=== PATIENT | female | born 1950 | race Caucasian/White ===

== ENCOUNTER 2016-08-06 09:00 | Inpatient (IN) | payer OTHER ==
[2016-08-15] MEDS ORDERED: MECLIZINE 25 MG TABLET PO ONE (06:00)
[2016-08-15] MEDS ORDERED: METOCLOPRAMIDE 10 MG TABLET PO ONE (06:00)
[2016-08-15] MEDS ORDERED: CEFAZOLIN 2 Gram 2 GM/50 ML BAG IVPB ONE ×2 (06:00→15:27)
[2016-08-15] MEDS ORDERED: ACETAMINOPHEN 1,000 MG/100 ML BTL IV ONE (06:00)
[2016-08-15] MEDS ORDERED: FAMOTIDINE 20MG TABLET PO ONE (06:00)
[2016-08-15] MEDS ORDERED: MAGNESIUM HYDROXIDE 30 ML UDC PO PRN (12:30)
[2016-08-15] MEDS ORDERED: OXYCODONE HCL 5 MG TABLET PO PRN ×2 (12:30)
[2016-08-15] MEDS ORDERED: METOCLOPRAMIDE HCL 10 MG/2 ML VIAL IVP PRN (12:30)
[2016-08-15] MEDS ORDERED: HYDROMORPHONE HCL 1 MG/ML CPJ IVP PRN (12:30)
[2016-08-15] MEDS ORDERED: TRAMADOL HCL 50 MG TABLET PO PRN (12:30)
[2016-08-15] MEDS ORDERED: ZOLPIDEM TARTRATE 5 MG TABLET PO PRN (12:30)
[2016-08-15] MEDS ORDERED: ONDANSETRON HCL IV 4 MG/2 ML VIAL IVP PRN (12:30)
[2016-08-15] MEDS ORDERED: AL HYDROX/MAG HYDROX 30ML UD PO PRN (12:30)
[2016-08-15] MEDS ORDERED: SENNOSIDES/DOCUSATE SODIUM UD CAPSULE PO PRN (12:30)
[2016-08-15] MEDS ORDERED: DIPHENHYDRAMINE HCL 25 MG CAPSULE PO PRN (12:30)
[2016-08-15] MEDS ORDERED: TRANEXAMIC ACID 1,000 MG in 0.9 % SODIUM CHLORIDE 100ML 100 ML IVPB ONE ×2 (13:00→15:00)
[2016-08-15] MEDS ORDERED: MIDAZOLAM HCL 2MG/2ML VIAL IV ONE (14:00)
[2016-08-15] MEDS ORDERED: PROPOFOL 10 MG/ML VIAL IV ONE (14:00)
[2016-08-15] MEDS ORDERED: FENTANYL PF 100MCG/2ML VIAL IV ONE (14:00)
[2016-08-15] MEDS ORDERED: DIPHENHYDRAMINE HCL IV 50 MG/ML VIAL IVP ONE (14:00)
[2016-08-15] MEDS ORDERED: LIDOCAINE 2% MDV (20MG/ML) 20ML VIAL IV ONE (14:00)
[2016-08-15] MEDS ORDERED: TRANEXAMIC ACID 1,000 MG/10 ML ML IV ONE (15:27)
[2016-08-15] MEDS ORDERED: BUPIVACAINE LIPOSOME 266MG/20ML VIAL IV ONE (15:27)
[2016-08-15] MEDS ORDERED: BUPIVACAINE 0.25% W/EPI MPF 30ML VIAL IVP ONE (15:27)
[2016-08-15] MEDS: RINGERS SOLUTION,LACTATED 1,000 ML IV SCH (15:48)
[2016-08-15] MEDS: ACETAMINOPHEN 1,000 MG/100 ML BTL IV SCH ×2 (16:12→21:51)
--- NOTE | 2016-08-15 16:28 | Rehab Evaluation ---
Patient Information - Patient Information Diagnosis: Left Knee OA Ordered Treatment: PT Evaluate and Treat Status: Initial Evaluation Surgery: Yes (L Knee TKA) Date of Surgery: 08/15/16 History: Detail (Pt. reports excellent PMH except for knee arthritis. Pt. slowly progressive worsening of sx.) Past Med/[place] Hx Detail: Detail (No related orthopedic surgeries.) Past Medical/Surgical Hx: PAST MEDICAL/SURGICAL HISTORY Past Surgical History tonsillectomy; tubal ligation; kidney stone removal PMH - Respiratory Hx Respiratory Disorders Yes Hx of SOB Yes: only with allergies-not now PMH - Cardiovascular Hx Cardiovascular Disorders No Exercise Tolerance Fair Comment: due to knee pain PMH - Neuro Hx Neurological Disorders No PMH - GI Hx Gastrointestinal Disorders No PMH - Hx Genitourinary Disorders Yes Hx Kidney Stones Yes: 6yrs ago Hx Urinary Tract Infection Yes: last one 6 yrs ago Comment: tubal ligation PMH - Endocrine Hx Endocrine Disorders No PMH - Musculoskeletal Hx Musculoskeletal Disorders Yes Hx Arthritis Yes: knees Hx Back Injury Yes: fx 1984,mid back PMH - Psych Hx Psychiatric Problems No PMH - Hematology/Oncology Hx Hematology/Oncology No Disorders Premorbid Status: Detail (Pt. reports slow and progressive degenerative changes at the knees bilaterally.) Social History: Detail (Pt. lives in a bi-level home with 1 step leading into the home and a flight of stairs leading to the basement where her bedroom is located. Pt. has a handrail on the left side when descending. Pt. has a grab bar and shower chair located in the bathroom in the basement. 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 Pt. has [employer] to provide support throughout the day. Pt. has a standard walker.) Precautions: [place], Fall - Time With Patient Total Time Spent With Patient (Min): 60 Treatment Procedures: Detail (Physical Therapy Eval Completed. Pt. ambulated to and from bathroom with front wheeled walker with CCG. Void attempt was successful. Pt. performed seated SLR, quadriceps isometric, and hamstring isometric for 5 attempts. Pt. stood and performed weight shifts at bedside for 2 minutes. Pt. was left supine with call light available, B IPC, CPM attached, nursing was notified of pt.'s status. Pt. was positioned supine and then transferred back to standing following bed inspection and findings of soiled linen. Linen was changed and pt.'s undergarments were changed following trip to bathroom and successful void attempt. Pt. was then placed back to supine positioning, when she reported that she could "now feel her backside".) Subjective Information - Subjective Information Per Patient (Pt. reported pain level of 0-1/10 throughout treatment.) Objective Data - Pain Pain Present: No Pain Scale Used: Numeric (1 - 10) - Mental Status Patient Orientation: Oriented x3 - Visual Perception Appears within normal limits for therapeutic activities - ROM Other (CPM set at 0 degrees extension and 60 degrees flexion. RLE within functional ROM values all planes of movement. BUE WFL all planes of movement.) - Strength/Tone Other (Break testing not tested for left knee flexion and extension. Left and right hip extension and flexion within functional strength limits needed for supine transfers and body positioning in bed. BUE within functional limits for bed transfers.) - Coordination Appears within normal limits for therapeutic activities - Bed Mobility Needs Assist (Pt. require minimum assistance with positioning of the LLE with supine to seated transfer, otherwise I with bed mobility.) - Transfers Needs Assist (Pt. required minimum assistance with positioning of the LLE with sit to stand transfer, otherwise I with transfer.) - Balance Balance Sitting: Good Balance Standing: Good (Pt. stood upright with CGA in bathroom for more than 3 minutes without deviation from midline.) - Sensation Intact (Pt. had feeling at the LLE regarding toes and bottom of foot.) - Gait Detail (Pt. was corrected to advance the operative LE with walker.) - ADL's/IADL's Detail (Pt. required moderate assistance with donning and doffing her undergarments prior to void attempt.) - Special Tests No Therapy Assessment - Therapy Assessment Detail (Pt. exhibits good understanding of body positioning and safety awareness with bed mobility and transfers. She exhibits functional strength of the bilateral UEs and is expected to pass all PT goals tomorrow.) Patient Education - Patient Education Teaching Topic: Discharge Instructions, Precautions Response: Verbalize Understanding Teaching Method: Discussion Teaching Recipient: Patient Barriers To Learning: None Problem List - Problem List Physical Therapy Problem List: Detail (1) LE weakness 2) LE ROM restriction 3) Assistance required with bed mobility and transfers 4) Verbal cues required for positioning of the operative LE.) Goals - Goals Physical Therapy Goals: 1) Pt. will ambulate household distances independently with AD without signs of gait deviation for safe ambulation. 2) Pt. will verbalize understanding of precautions. 3) Pt. will be independent with the home program. 4) Pt. will ascend and descend 7 steps independently with AD and exhibit proper positioning of LEs and AD. Prognosis - Prognosis Good (Pt. is expected to complete inpatient PT goals within 1-2 days and be appropriate for D/C to home environment following inpatient stay.) Plan - Plan Physical Therapy Plan: Pt. is to be seen 1-2x per day for inpatient PT until goals met for D/C to home environment.
[2016-08-15] MEDS: CEFAZOLIN 2 Gram 2 GM/50 ML BAG IVPB SCH (16:53)
[2016-08-15] MEDS: TRAMADOL HCL 50 MG TABLET PO PRN ×2 (16:53→23:57)
[2016-08-15] MEDS: FONDAPARINUX 2.5 MG/0.5 ML SYR SQ SCH (21:51)
[2016-08-16] MEDS: CEFAZOLIN 2 Gram 2 GM/50 ML BAG IVPB SCH ×2 (01:15→08:35)
[2016-08-16] MEDS: ACETAMINOPHEN 1,000 MG/100 ML BTL IV SCH (03:19)
[2016-08-16] MEDS: RINGERS SOLUTION,LACTATED 1,000 ML IV SCH (06:33)
[2016-08-16 06:45] LABS: HEMATOCRIT 35.5 % (35.0-47.0); MEAN CELL VOLUME 85.1 fl (81-97); MEAN PLATELET VOLUME 10.4 fl (7.4-10.4); PLATELET COUNT 201 K/uL (130-400); RED BLOOD COUNT 4.17 M/uL (3.80-5.40); RED CELL DISTRIBUTION WIDTH 14.7 % (11.5-14.5)
[2016-08-16 06:50] LABS: MEAN CORPUSCULAR HEMOGLOBIN 26.3 pg (27-33)
[2016-08-16] MEDS: TRAMADOL HCL 50 MG TABLET PO PRN ×2 (08:33→15:49)
--- NOTE | 2016-08-16 10:24 | Physical Therapy Tx Note ---
Physical Therapy Tx Note - Treatment Note Tolerated: Good Total Time Spent With Patient: 30 Physical Therapy Tx Note: Detail (Patient states 4/10 pain in left knee. Patient transferred min assist x1 to support left LE. Patient transferred sit to and from stand CGA x1. Patient ambulated 45 feet with wheeled walker CGA x1. Patient performed the following exercises x10 reps each seated on edge of bed: ankle pumps, quad sets, glut squeezes, heel slides, and seated SLR with assist. Patient transferred sit to supine min assist x1 to support left LE. Patient tolerated treatment well. Patient reports knee painful after treatment. Patient was left supine in bed with cryo, CPM, and pneumatic compression.) Physical Therapy Problem List: Detail (1) LE weakness 2) LE ROM restriction 3) Assistance required with bed mobility and transfers 4) Verbal cues required for positioning of the operative LE.) Physical Therapy Goals: 1) Pt. will ambulate household distances independently with AD without signs of gait deviation for safe ambulation. 2) Pt. will verbalize understanding of precautions. 3) Pt. will be independent with the home program. 4) Pt. will ascend and descend 7 steps independently with AD and exhibit proper positioning of LEs and AD. Prognosis: Good Physical Therapy Plan: Pt. is to be seen 1-2x per day for inpatient PT until goals met for D/C to home environment.
[2016-08-16] MEDS ORDERED: OXYCODONE/APAP 7.5MG/325MG TABLET PO PRN ×2 (12:30)
[2016-08-16] MEDS ORDERED: HYDROCODONE/APAP 7.5/325MG TABLET PO PRN ×2 (12:30)
[2016-08-16] MEDS ORDERED: ACETAMINOPHEN 325 MG TAB PO PRN (12:30)
--- NOTE | 2016-08-16 13:42 | Rehab Evaluation ---
Patient Information - Patient Information Diagnosis: Left Knee OA Ordered Treatment: OT Evaluate and Treat Status: Initial Evaluation Surgery: Yes (L Knee TKA) Date of Surgery: 08/15/16 History: Detail (Pt. reports excellent PMH except for knee arthritis. Pt. slowly progressive worsening of sx.) Past Med/[place] Hx Detail: Detail (No related orthopedic surgeries.) Past Medical/Surgical Hx: PAST MEDICAL/SURGICAL HISTORY Past Surgical History tonsillectomy; tubal ligation; kidney stone removal PMH - Respiratory Hx Respiratory Disorders Yes Hx of SOB Yes: only with allergies-not now PMH - Cardiovascular Hx Cardiovascular Disorders No Exercise Tolerance Fair Comment: due to knee pain PMH - Neuro Hx Neurological Disorders No PMH - GI Hx Gastrointestinal Disorders No PMH - Hx Genitourinary Disorders Yes Hx Kidney Stones Yes: 6yrs ago Hx Urinary Tract Infection Yes: last one 6 yrs ago Comment: tubal ligation PMH - Endocrine Hx Endocrine Disorders No PMH - Musculoskeletal Hx Musculoskeletal Disorders Yes Hx Arthritis Yes: knees Hx Back Injury Yes: fx 1984,mid back PMH - Psych Hx Psychiatric Problems No PMH - Hematology/Oncology Hx Hematology/Oncology No Disorders Premorbid Status: Detail (Pt. reports slow and progressive degenerative changes at the knees bilaterally.) Social History: Detail (Pt. lives in a bi-level home with 1 step leading into the home and a flight of stairs leading to the basement where her bedroom is located. Pt. has a handrail on the left side when descending. Pt. has a grab bar and shower chair located in the bathroom in the basement. 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 Pt. has grandkids to provide support throughout the day. Pt. has a standard walker.) Precautions: [place], Fall - Time With Patient Total Time Spent With Patient (Min): 30 Objective Data - Pain Pain Present: Yes Pain Scale Used: Numeric (1 - 10) (5/10 pain at rest) - Mental Status Patient Orientation: Oriented x3 - Visual Perception Appears within normal limits for therapeutic activities - ROM Within normal limits (BUE) - Strength/Tone Within normal limits (BUE) - Coordination Appears within normal limits for therapeutic activities - Sensation Intact - ADL's/IADL's Detail (Pt. reported she will take sponge baths and wear slip-on shoes for a while when she first returns home. Pt. still had surgical drain in, so instead of performing ADL's, verbal educ. was provided on dressing techniques and available AE if needed. Pt. verbalized understanding.) Therapy Assessment - Therapy Assessment Detail (Pt. has a good support system at home, and has knowledge of dressing techniques and available AE if needed. No further OT needed at this time.) Problem List - Problem List Physical Therapy Problem List: Detail (1) LE weakness 2) LE ROM restriction 3) Assistance required with bed mobility and transfers 4) Verbal cues required for positioning of the operative LE.) Goals - Goals Physical Therapy Goals: 1) Pt. will ambulate household distances independently with AD without signs of gait deviation for safe ambulation. 2) Pt. will verbalize understanding of precautions. 3) Pt. will be independent with the home program. 4) Pt. will ascend and descend 7 steps independently with AD and exhibit proper positioning of LEs and AD. Plan - Plan Physical Therapy Plan: Pt. is to be seen 1-2x per day for inpatient PT until goals met for D/C to home environment. Occupational Therapy Plan: No further OT services anticipated at this time. Pt. has been instructed to contact rehab services if any questions/concerns arise.
--- NOTE | 2016-08-16 17:40 | Physical Therapy Tx Note ---
Physical Therapy Tx Note - Treatment Note Tolerated: Good Total Time Spent With Patient: 20 Physical Therapy Tx Note: Detail (Patient states 4/10 pain in left knee. Patient transferred supine to sit min assist x1 to support left LE. Patient transferred sit to and from stand CGA x1. Patient ambulated 5 feet with standard walker CGA x1. Patient transferred sit to and from stand CGA x1. Patient ambulated 10 feet x2 CGA x1. Patient ascended and descended 6 steps CGA x1. Patient transferred sit to and from stand CGA x1. Patient ambulated 5 feet with standard walker CGA x1. Patient transferred sit to supine min assist x1 to support left LE. Patient tolerated treatment well. Patient reports good understanding of HEP. Patient was left supine in bed with cryo, pneumatic compression, and call light within reach. Patient has met all therapy goals, discharged from inpatient physical therapy at this time.) Physical Therapy Problem List: Detail (1) LE weakness 2) LE ROM restriction 3) Assistance required with bed mobility and transfers 4) Verbal cues required for positioning of the operative LE.) Physical Therapy Goals: 1) Pt. will ambulate household distances independently with AD without signs of gait deviation for safe ambulation. 2) Pt. will verbalize understanding of precautions. 3) Pt. will be independent with the home program. 4) Pt. will ascend and descend 7 steps independently with AD and exhibit proper positioning of LEs and AD. Prognosis: Good Physical Therapy Plan: Pt. is to be seen 1-2x per day for inpatient PT until goals met for D/C to home environment.
[2016-08-16] MEDS: FONDAPARINUX 2.5 MG/0.5 ML SYR SQ SCH (17:54)
--- NOTE | 2016-08-20 09:47 | Operative Note ---
DATE OF SURGERY: 08/15/2016 Surgeon: Joce Amador DO Referring physician: Oswaldo Schwartz DO PREOPERATIVE DIAGNOSIS: Primary osteoarthritis of the left knee. POSTOPERATIVE DIAGNOSIS: Primary osteoarthritis of the left knee. OPERATION: Right total knee arthroplasty. Anesthesia: Spinal PROCEDURE: This 66-year-old female was taken to the operating room and placed in the supine position on the operating room table. A spinal anesthetic was induced and the left lower extremity was elevated, and it was prepped with Hibiclens and draped in the usual sterile fashion. It was exsanguinated and the tourniquet inflated to 300 mmHg. All scrubbed personnel wore personal isolation suits. An anterior longitudinal midline incision was made, followed by a medial parapatellar arthrotomy incision. The intracondylar drill hole was made for the intramedullary alignment radha and the distal femoral cutting block was pinned in 5 degrees of valgus and a 9 mm cut was made in the distal femur. The sizing jig was affixed to size 4, was seen to be the appropriate size, and a 4-in-1 cutting block was then pinned in 3 degrees of external rotation. The appropriate cuts were made. The wafer of bone was removed. There was a very, very slight notch seen on the lateral side. The lateral ridge was a little bit larger than most, but there was no notch seen on the medial side of the anterior aspect of the distal femur. The wound was then irrigated, moving debris from the joint. We then directed our attention to the proximal tibia and referencing a 10 mm cut off the lateral tibial plateau. The appropriate cut was made and the wafer of bone was removed. The patient's bone was cut an additional 2 mm because of the bone loss in the medial tibial plateau. Subsequently the cut was made with a 3 degree posterior slope cut. Subsequently, the tibial sizing jig was fixed and a size 4 was seen to be the appropriate size and the stem punch was used. We then directed our attention to the patella. The patella was cut, measured, cut and restored to its anatomic height with a 35 x 10 mm trial. The trial components were inserted and a 9 mm bearing was seen to be the appropriate size and the knee was taken through a range of motion with excellent stability of the components being identified. All trial components were then removed and the wound copiously irrigated with pulse lavage and lactated Ringer's solution. All bony surfaces were dried. All components were cemented into place and excess cement removed after the insertion of each component. Exparel had been injected into the posterior, medial, and lateral corners of the joint and after the final components were inserted, was injected into the periosteum and joint capsule of the proximal tibia and distal femur. Initially, the tibial base plate was cemented, followed by the insertion of the tibial bearing, the femoral component, and finally the patella. Once the cement had hardened, the knee was again taken through range of motion and found to be stable. A drain was placed through a separate stab incision. The arthrotomy incision was closed with 2 Vicryl, the subcutaneous tissue closed with 0 Vicryl, and the skin was stapled. Sterile dressings applied, Polar Care applied, and the patient taken to the recovery room in satisfactory condition. GROSS PATHOLOGY: This patient demonstrated severe osteoarthritis of the medial compartment, full-thickness articular cartilage loss noted in both compartments with bone loss in the medial tibial plateau. The final components inserted were a Sandoval [employer]ep[employer] size 4 cruciate-retaining Oxinium femoral component, a size 4 tibia, a 9 mm deep dish tibial bearing, and a 35 x [address] [facility]
--- NOTE | 2016-08-20 09:51 | Discharge Summary ---
DATE OF ADMISSION: 08/15/2016 DATE OF DISCHARGE: 08/16/2016 ADMITTING DIAGNOSIS: Osteoarthritis of the left knee. DISCHARGE DIAGNOSIS: Osteoarthritis of the left knee. OPERATIVE PROCEDURE: Left total knee arthroplasty. DESCRIPTION: This 66-year-old female was admitted to the hospital for elective total knee arthroplasty, and tolerated the operative procedure well. Patient progressed satisfactorily and was ready for discharge the first postoperative day. She will be discharged with the use of her MARCIE hose to wear them during the day and then remove them at night. She will take aspirin 325 mg b.i.d. for 2 weeks. She was given a prescription for Percocet 7.5/325 one or two every 6 hours as necessary for pain to alternate with Ultram 50 mg 1 or 2 every 6 hours as necessary for pain, and she was given 60. Routine wound care instructions were given. She will follow up in my office in 2 weeks. She will have outpatient physical therapy. Should she have any problems prior to being seen, she was instructed to call my office. JONO
== END 2016-08-16 18:45 | disposition home or self-care (01) | DRG 470 ==
LOC: MEDSURG 08-15 06:44
PROVIDERS: ADMIT Orthopaedic Surgery; ATTEND Orthopaedic Surgery
PROC: 0SRD0J9 Replacement of Left Knee Joint with Synthetic Substitute, Cemented, Open Approach (ICD-10-PCS; principal; 2016-08-15 09:30)
DX: M17.11 Unilateral primary osteoarthritis, right knee (principal)
CPT/HCPCS: 85014; 85018; 85025; 94760; 97110; 97165; 97530; J1200; J7120